=== PATIENT | male | born 1940 | race Caucasian/White ===

== ENCOUNTER → 2020-07-14 | Outpatient (CLI) | payer OTHER ==
[~2020-07-14] MED LIST: AMLODIPINE BESY10 MG PO; ATORVASTATIN CA20 MG PO; CARVEDILOL25 MG PO; CLONIDINE1 EACH TRANSDERM; FEXOFENADINE H180 MG PO; FINASTERIDE5 MG PO; FUROSEMIDE 40 M40 M1 PO; JARDIANCE10 MG PO; K-DUR 20 MEQ T20 MEQ PO; LOSARTAN POTASS50 MG PO; NOVOLOG100 UNIT/1 SUBQ; PACERONE200 MG PO; PROAIR HFA8.5 GM INH; VITAMIN D3250 MC1 PO; XARELTO20 MG PO; ZINC50 M2 PO
== END ==
LOC: LAB 11:27
PROVIDERS: ATTEND Ophthalmology
DX: Z01.812 Encounter for preprocedural laboratory examination (principal); Z20.822 Contact with and (suspected) exposure to COVID-19

== ENCOUNTER → 2020-07-17 | Day surgery (SDC) | payer OTHER ==
[~2020-07-17] VITALS: Ht 188 cm; Wt 131.5 kg
[2020-07-17 11:00] VITALS: BP 150/93
--- NOTE | 2020-07-21 06:17 | O ---
[facility] [place] [address] OPERATIVE REPORT Name: SHWETHA UMAÑA Room #: REG [facility]#: [id number] Admission: 07/17/20 Attend Phys: Silvestre Munguia MD Discharge: Date of : 44 Report #: [id number] THIS REPORT FOR: cc: FAM - No family physician/PCP FAM - No family physician/PCP Silvestre Munguia MD ~ DATE OF SERVICE: 07/17/2020 PREOPERATIVE DIAGNOSIS: Tumor of left lower lid, medial canthus. POSTOPERATIVE DIAGNOSIS: Tumor of left lower lid, medial canthus. PROCEDURE: Excision of tumor of left lower lid, medial canthus with myocutaneous flap repair of defect. SURGEON: Silvestre Munguia MD HAND ICER: None. ANESTHESIA: MAC. COMPLICATIONS: None. INDICATIONS FOR SURGERY: This pleasant 80-year-old gentleman has a nodular ulcerative mass in his medial left lower lid extending up on to his canthus that appears to be a basal cell carcinoma. He presents today for excision of this lesion with frozen sections and subsequent repair of that ensuing defect. Informed consent was obtained to include but not limited to the potential risk for loss of vision, bleeding, infection, failure to improve the problem, the potential need for further surgery or treatment. DESCRIPTION OF PROCEDURE: The patient was taken to the operating room where 2% Xylocaine with epinephrine mixed with equal parts 0.75% Marcaine with Wydase was administered transcutaneously to the left lower lid, the left medial canthus, the left cheek and the medial left upper lid in addition to the glabella. The patient was subsequently prepped and draped in the usual sterile fashion. A fine tip skin marking pen was utilized to outline the lesion including 2-3 mm of normal appearing tissue. The incisions were then made with a 15 blade and the deeper dissection accomplished with a Kylie scissor removing the lesion en bloc. Hemostasis was achieved in the field with diligent pinpoint monopolar cautery. The specimen was then oriented on a drawing for the waiting pathologist. She snap froze that tissue and felt that the lesion was probably completely extirpated and was indeed a basal cell carcinoma. She was somewhat concerned though that there may be a few cells left medially, so she asked for additional lateral tissue. An additional lateral margin was then taken removing [address] [address] OPERATIVE REPORT Name: BISHOPSHWETHA Leonard Room #: REG [facility].#: [id number] Admission: 07/17/20 Attend Phys: Silvestre Munguia MD Discharge: Date of : 44 Report #: [id number] 2-3 more millimeters of tissue across the entire length of the wound. She snap froze this tissue and found that the new margin was indeed negative. A myocutaneous flap was then developed medially to be rotated laterally to correct the defect. Hemostasis was then re-achieved. The relaxing incision was closed with multiple interrupted 6-0 plain gut sutures as was the primary advancement. The wounds were then cleaned and dressed with erythromycin ophthalmic ointment. The patient subsequently transported to the recovery area having tolerated the procedure well with no anesthetic or operative complications being noted. <ELECTRONICALLY SIGNED> By: Silvestre Munguia MD 07/21/20 0617 1331 1500 Silvestre Munguia MD /nt
--- NOTE | 2020-07-21 11:11 | PATH ---
[facility] [place] [address] PATHOLOGY RPT PROCEDURE Name: SHWETHA UMAÑA Room #: REG [facility].#: [id number] Admission: 07/17/20 Date of : 44 Discharge: Report #: [id number] Path Case #: [id number] [facility] Accession Number: [id number] . 01 Material submitted: . PART A: eyelid - LESION LEFT LOWER LID,MEDICAL CANTHUS -FS. Modifiers: left, lower PART B: eyelid - ADDITIONAL LEFT LOWER LATERAL MARGIN -FS. Modifiers: left, lower . 01 Clinician provided ICD-10: D23.122 . 02 Frozen section diagnosis: . INTRAOPERATIVE CONSULTATION WITH FROZEN SECTION: (Dr. Maria Del Rosario Ca) . FSA1. Lesion left lower lid medial canthus, excision: - Very close to lateral margin on FS slide. . FSB1. Additional left lower lateral margin, re-excision: - No definite invasive carcinoma on FS slide. . These findings are discussed with Dr. Silvestre Munguia in OR6 and a written report is placed in the patient's chart. (IUV:mml; 07/17/2020) . . FROZEN SECTION GROSS DESCRIPTION: A. Received fresh from the OR, labeled "Shwetha Umaña - Lesion left lower lid medial canthus" is an oriented ellipse of skin measuring 1.7 x 0.6 x 0.6 cm. There is a raised oval lesion present on the surface, which appears grossly free from the lateral as well as the medial margins. The specimen is oriented as superior, lateral, inferior and medial. The superior to lateral margin is inked black, the lateral to inferior margin is inked yellow, inferior to medial margin is inked blue, and the medial to superior margin is inked green. At this point, the specimen is serially sectioned and entirely submitted for frozen section as FSA1, this is subsequently submitted for permanent section as A1. . B. Received fresh from the OR, labeled "Shwetha Umaña - Additional left lower lateral margin" is a thin strip of skin measuring 1.0 cm, oriented as inferior and superior. The inferior end of the specimen is inked black and the superior end is inked yellow. The specimen is submitted en face for frozen section as FSB1, subsequently submitted for permanent section as B1. (IUV:mml; 07/17/2020) . . [address] [address] PATHOLOGY RPT PROCEDURE Name: SHWETHA UMAÑA Room #: REG [facility].#: [id number] Admission: 07/17/20 Date of : 44 Discharge: Report #: [id number] Path Case #: [id number] Frozen section performed at [facility], [address] [place], [place] [address]verenice Izaguirre, [place] [address]. IZV/QLM . 02 Diagnosis: A. Skin, lesion left lower lid medial canthus, excision: - BASAL CELL CARCINOMA. - Margins of resection free of malignancy. . B. Skin, additional left lateral margin, re-excision: - Negative for malignancy. (IUV:pit 07/18/2020) QTP 07/18/2020 1519 Local . 02 Electronically signed: . Maria Del Rosario Ca MD, Pathologist NPI- [id number] . 01 Gross description: . A. PLEASE SEE FROZEN SECTION GROSS DESCRIPTION . B. PLEASE SEE FROZEN SECTION GROSS DESCRIPTION /[facility] 07/17/2020 1535 Local . 02 Pathologist provided ICD-10: C44.1192, D23.122 . 02 CPT . 407832, [id number], [id number], [id number] Specimen Comment: A courtesy copy of this report has been sent to [phone] Specimen Comment: Report sent to Specimen Comment: A duplicate report has been generated due to demographic updates. Performed at: [address], [place] [id number] MD Jose Turner MD Phone: [phone] Performed at: [address] [id number] MD Maria Del Rosario Ca MD Phone: [phone]
== END | disposition home or self-care (01) ==
LOC: OR 09:03 → EDSTATUS 10:51
PROVIDERS: ATTEND Ophthalmology
DX: C44.1192 Basal cell carcinoma of skin of left lower eyelid, including canthus (principal); I10 Essential (primary) hypertension; E11.9 Type 2 diabetes mellitus without complications; E78.5 Hyperlipidemia, unspecified; J45.909 Unspecified asthma, uncomplicated; K21.9 Gastro-esophageal reflux disease without esophagitis; Z98.890 Other specified postprocedural states; Z79.899 Other long term (current) drug therapy; Z79.4 Long term (current) use of insulin; Z87.891 Personal history of nicotine dependence; Z90.49 Acquired absence of other specified parts of digestive tract
CPT/HCPCS: 50010; 50101; 50386; 50398; 51636; 56531; 62110; 62850; 70005